=== PATIENT | male | born 1970 ===

== ENCOUNTER 2019-05-08 17:28 | Emergency (ER) | payer SELFPAY ==
[2019-05-08 18:24] VITALS: BP 128/84
[2019-05-08] MEDS ORDERED: Naproxen TAB* 250 MG PO ONE (19:05)
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
--- NOTE | 2019-05-09 07:22 | UC ---
- Progress Note Progress Note: No change in initial management - EKG/XRAY/CT XRAY: right shoulder Xray Comments: no evidence for fracture Course/Dx - Diagnoses Provider Diagnoses: Strain of right trapezius muscle Discharge ED - Sign-Out/Discharge Documenting (check all that apply): Post-Discharge Follow Up All imaging exams completed and their final reports reviewed: Yes - Discharge Plan Condition: Stable Disposition: HOME Prescriptions: Cyclobenzaprine TAB* [Flexeril 10 MG TAB*] 10 mg PO TID PRN #21 tab PRN Reason: Spasms Naproxen [Naproxen 500 mg tab] 500 mg PO Q12HR PRN #30 tablet PRN Reason: Pain - Mild Patient Education Materials: Muscle Strain (ED) Referrals: Bahman Jasmine MD [Primary Care Provider] - 5 Days (If no improvement in symptoms.) Additional Instructions: The x-ray performed in the clinic today showed no evidence of a fracture. Based on your exam I suspect that you have a strain of the trapezius muscle. Rest as much as possible. Avoid heavy lifting or strenuous activity while having pain. Apply ice to the affected area for 15-20 minutes at least 4 times a day to help with the pain. Take naproxen 500 mg 1 tab every 12 hours with food as needed for pain. You were given a dose at 7:15 PM in the clinic. Take cyclobenzaprine 10 mg 1 tablet every 8 hours as needed for severe pain or spasm. Be aware that this medication will cause drowsiness he should not take and drive or operate machinery. Follow up with your primary care provider in 5-7 days if symptoms do not improve. Seek immediate medical attention if you have severe pain not managed with pain medication, he was function of the arm, develop numbness or tingling in the arm , hand, or fingers, or have any worsening of symptoms. - Billing Disposition and Condition Condition: STABLE Disposition: Home
== END 2019-05-08 19:43 | disposition home or self-care (01) ==
LOC: UCEAST 17:28
DX: S46.811A Strain of other muscles, fascia and tendons at shoulder and upper arm level, right arm, initial encounter (principal); V89.2XXA Person injured in unspecified motor-vehicle accident, traffic, initial encounter; Y92.9 Unspecified place or not applicable
CPT/HCPCS: 99202; A9270-GY; G0463

== ENCOUNTER 2019-05-13 15:28 | Emergency (ER) | payer OTHER ==
[2019-05-13 16:12] VITALS: BP 123/77
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
== END 2019-05-13 17:22 | disposition home or self-care (01) ==
LOC: UCEAST 15:28
DX: M77.11 Lateral epicondylitis, right elbow (principal); M19.041 Primary osteoarthritis, right hand
CPT/HCPCS: 99212; G0463